=== PATIENT | male | born 1940 | race Caucasian/White ===

== ENCOUNTER → 2016-11-06 | Outpatient (CLI) | payer MEDICARE, BC ==
[~2016-11-06] MED LIST: ASPIRIN LO-DOSE81 MG PO; BYSTOLIC5 MG PO; COLACE100 MG PO; CRESTOR20 MG PO; K-TAB 10MEQ10 MEQ PO; LASIX20 MG PO; MIRAPEX0.25 MG PO; MULTAQ400 MG PO; NITROGLYCERIN0.2 MG TOP; NITROSTAT0.4 MG SL; NORCO 5-325 TA1 EACH PO; NORVASC5 MG PO; PLAVIX75 MG PO; PRINIVIL (ZESTR20 MG PO; PROTONIX40 MG PO; TYLENOL325 MG PO; ULORIC40 MG PO; XARELTO15 MG PO
== END | disposition disaster alternative care site (69) ==
LOC: GRAD 08:16
DX: C64.1 Malignant neoplasm of right kidney, except renal pelvis (principal); K57.30 Diverticulosis of large intestine without perforation or abscess without bleeding; N40.0 Benign prostatic hyperplasia without lower urinary tract symptoms; K86.2 Cyst of pancreas